=== PATIENT | male | born 1975 | race Caucasian/White ===

== ENCOUNTER 2017-05-21 02:12 | Emergency (ER) | payer MEDICAID ==
[~2017-05-21] VITALS: Ht 180.3 cm; Wt 71.8 kg
[2017-05-21] MEDS ORDERED: KETOROLAC 30 MG/1 ML ONE (02:49)
[2017-05-21] MEDS ORDERED: KETOROLAC 30 MG/1 ML IM ONE (03:00)
[2017-05-21 04:12] VITALS: BP 116/76
== END 2017-05-21 04:14 | disposition home or self-care (01) ==
LOC: ED 03:26
DX: M25.561 Pain in right knee (principal); F12.10 Cannabis abuse, uncomplicated; F17.210 Nicotine dependence, cigarettes, uncomplicated
CPT/HCPCS: 73564; 96372; 99284; J1885

== ENCOUNTER 2017-10-12 08:38 | Emergency (ER) | payer MEDICAID ==
[~2017-10-12] VITALS: Ht 180.3 cm; Wt 80.0 kg
[2017-10-12 09:23] LABS: RAPID INFLUENZA A Negative (Negative); RAPID INFLUENZA B POSITIVE (Negative)
[2017-10-12 09:39] VITALS: BP 113/69
[2017-10-12] MEDS ORDERED: HYDROcodone/APAP 5/325 TABLET PO ONE (10:00)
[2017-10-12] MEDS ORDERED: HYDROcodone/APAP 5/325 TABLET ONE (10:05)
== END 2017-10-12 10:26 | disposition home or self-care (01) ==
LOC: ED 08:57
DX: J10.1 Influenza due to other identified influenza virus with other respiratory manifestations (principal); J31.0 Chronic rhinitis
CPT/HCPCS: 71046; 87400; 99285

== ENCOUNTER 2017-11-21 12:58 | Emergency (ER) | payer MEDICAID ==
[~2017-11-21] VITALS: Ht 180.3 cm; Wt 83.8 kg
[2017-11-21 13:01] VITALS: BP 110/69
[2017-11-21] MEDS ORDERED: KETOROLAC 30 MG/1 ML IM ONE (14:30)
[2017-11-21] MEDS ORDERED: KETOROLAC 30 MG/1 ML ONE (14:30)
== END 2017-11-21 15:08 | disposition home or self-care (01) ==
LOC: ED 15:02
DX: S63.502A Unspecified sprain of left wrist, initial encounter (principal); X58.XXXA Exposure to other specified factors, initial encounter; Y93.89 Activity, other specified; Y99.8 Other external cause status; Y92.89 Other specified places as the place of occurrence of the external cause
CPT/HCPCS: 29260; 73110; 96372; 99284; J1885

== ENCOUNTER 2018-02-11 10:36 | Emergency (ER) | payer MEDICAID ==
[~2018-02-11] VITALS: Ht 180.3 cm; Wt 81.4 kg
[2018-02-11 10:37] VITALS: BP 113/75
[2018-02-11] MEDS ORDERED: KETOROLAC 30 MG/1 ML ONE (11:15)
[2018-02-11] MEDS ORDERED: KETOROLAC 30 MG/1 ML IM ONE (11:30)
== END 2018-02-11 12:07 | disposition home or self-care (01) ==
LOC: ED 12:01
DX: M77.9 Enthesopathy, unspecified (principal)
CPT/HCPCS: 29260; 73090; 96372; 99284; J1885

== ENCOUNTER 2018-06-10 10:58 | Emergency (ER) | payer MEDICAID ==
[~2018-06-10] VITALS: Ht 180.3 cm; Wt 82.0 kg
[2018-06-10] MEDS ORDERED: SODIUM CHLORIDE 0.9% 1,000 ML IV ONE (11:20)
[2018-06-10] MEDS ORDERED: ONDANSETRON ODT 4 MG PO ONE (11:30)
[2018-06-10] MEDS ORDERED: SODIUM CHLORIDE 0.9% 1,000ML IVBOLUS ONE (11:30)
[2018-06-10] MEDS ORDERED: SODIUM CHLORIDE FLUSH 10ML SYR IVF ONE (11:30)
[2018-06-10 11:56] LABS: BASOPHILS # (AUTO) 0.01 x10^3/uL (0-0.1); BASOPHILS % (AUTO) 0 % (0-1); EOSINOPHILS % (AUTO) 1 % (1-7); LYMPHOCYTES # (AUTO) 1.05 x10^3/uL (1-3.4); LYMPHOCYTES % (AUTO) 7 % (22-44); MD NO; MEAN CORPUSCULAR HEMOGLOBIN 30.8 pg (27.5-34.5); MEAN CORPUSCULAR HGB CONC 34.5 g/dL (33.2-36.2); MEAN CORPUSCULAR VOLUME 89.4 fL (81-97); MEAN PLATELET VOLUME 8.4 fL (7.4-10.4); MONOCYTES % (AUTO) 6 % (2-9); NEUTROPHILS # (AUTO) 12.56 x10^3/uL (1.8-6.8); NEUTROPHILS % (AUTO) 86 % (42-75); PLATELET COUNT 238 x10^3/uL (130-400); RED BLOOD COUNT 5.59 x10^6/uL (4.38-5.82); RED CELL DISTRIBUTION WIDTH 13.6 % (9.4-14.8)
[2018-06-10 12:07] LABS: ALANINE AMINOTRANSFERASE 77 U/L (12-78); ALBUMIN 4.4 g/dL (3.4-5.0); ANION GAP 11 mmol/L (5-15); CALCIUM 9.1 mg/dL (8.5-10.1); CHLORIDE 107 mmol/L (98-107)
[2018-06-10 12:09] LABS: ALKALINE PHOSPHATASE 95 U/L (45-117); BILIRUBIN,TOTAL 0.7 mg/dL (0.2-1.0); TOTAL PROTEIN 8.7 g/dL (6.4-8.2)
[2018-06-10] MEDS ORDERED: ONDANSETRON ODT 4 MG ONE (12:19)
[2018-06-10 13:39] LABS: MICROSCOPIC AUTO
[2018-06-10 13:48] LABS: CULTURE INDICATED? NO
[2018-06-10] MEDS ORDERED: OMNIPAQUE 350 MG/ML, 100ML BOTTLE ONE (15:12)
[2018-06-10 15:53] VITALS: BP 99/64
== END 2018-06-10 16:02 | disposition home or self-care (01) ==
LOC: ED 12:20
DX: K52.9 Noninfective gastroenteritis and colitis, unspecified (principal)
CPT/HCPCS: 36415; 74177; 80053; 81001; 83690; 85025; 96360; 99285; J7030; Q0162; Q9967

== ENCOUNTER 2018-10-09 10:20 | Emergency (ER) | payer MEDICAID, OTHER ==
[~2018-10-09] VITALS: Ht 180.3 cm; Wt 80.0 kg
[2018-10-09 10:36] VITALS: BP 102/68
[2018-10-09] MEDS ORDERED: KETOROLAC 30 MG/1 ML ONE (11:51)
--- NOTE | 2018-10-09 11:59 | NUR ---
Patient/Caregiver given discharge instructions and they have confirmed that they understand the instructions. Patient ambulatory with steady gait.
[2018-10-09] MEDS ORDERED: KETOROLAC 60 MG/2 ML IM ONE (12:00)
[2018-10-09] MEDS ORDERED: KETOROLAC 30 MG/1 ML IM ONE (12:00)
== END 2018-10-09 12:02 | disposition home or self-care (01) ==
LOC: ED 11:03
DX: S63.621A Sprain of interphalangeal joint of right thumb, initial encounter (principal); M13.141 Monoarthritis, not elsewhere classified, right hand; M10.9 Gout, unspecified; Z87.19 Personal history of other diseases of the digestive system; X58.XXXA Exposure to other specified factors, initial encounter; Y93.89 Activity, other specified; Y92.89 Other specified places as the place of occurrence of the external cause; Y99.8 Other external cause status
CPT/HCPCS: 73130; 96372; 99283; J1885

== ENCOUNTER 2019-02-12 10:16 | Emergency (ER) | payer MEDICAID ==
[~2019-02-12] VITALS: Ht 180.3 cm; Wt 80.0 kg
[2019-02-12 10:19] VITALS: BP 97/64
--- NOTE | 2019-02-12 10:50 | NUR ---
Patient/Caregiver given discharge instructions and they have confirmed that they understand the instructions. Patient ambulatory with steady gait.
== END 2019-02-12 10:55 | disposition home or self-care (01) ==
LOC: ED 10:41
DX: K02.9 Dental caries, unspecified (principal); F17.200 Nicotine dependence, unspecified, uncomplicated; M19.90 Unspecified osteoarthritis, unspecified site
CPT/HCPCS: 99283

== ENCOUNTER 2019-12-03 11:05 | Emergency (ER) | payer MEDICAID, OTHER ==
[~2019-12-03] VITALS: Ht 180.3 cm; Wt 76.1 kg
[2019-12-03 11:45] VITALS: BP 105/53
== END 2019-12-03 14:50 | disposition home or self-care (01) ==
LOC: ED 14:29
DX: B34.9 Viral infection, unspecified (principal); F17.200 Nicotine dependence, unspecified, uncomplicated; M19.90 Unspecified osteoarthritis, unspecified site
CPT/HCPCS: 71046; 99283

== ENCOUNTER 2020-08-26 01:51 | Emergency (ER) | payer SELFPAY ==
[~2020-08-26] VITALS: Ht 180.3 cm; Wt 67.0 kg
[2020-08-26] MEDS ORDERED: PROPARACAINE OPHTH 0.5%, 15ML ONE (01:58)
[2020-08-26] MEDS ORDERED: FLUORESCEIN OPHTHALMIC 1 MG STRIP ONE (01:58)
--- NOTE | 2020-08-26 02:18 | NUR ---
DR. BAEZA AT BEDSIDE FOR ASSESSMENT
[2020-08-26] MEDS ORDERED: DIPH,PERTUSS(ACELL),TET VAC/PF 0.5 ML IM-VACC ONE ×2 (02:30→03:49)
[2020-08-26 02:39] LABS: BASOPHILS % (AUTO) 1 % (0-1); EOSINOPHILS % (AUTO) 3 % (1-7); LYMPHOCYTES % (AUTO) 43 % (22-44); MEAN CORPUSCULAR HEMOGLOBIN 31.1 pg (27.5-34.5); MEAN CORPUSCULAR HGB CONC 34.6 g/dL (33.2-36.2); MEAN PLATELET VOLUME 7.2 fL (7.4-10.4); MONOCYTES % (AUTO) 8 % (2-9); NEUTROPHILS % (AUTO) 45 % (42-75); PLATELET COUNT 269 x10^3/uL (130-400); RED BLOOD COUNT 5.14 x10^6/uL (4.38-5.82)
[2020-08-26 02:50] LABS: ALBUMIN 3.9 g/dL (3.4-5.0); ANION GAP 5 mmol/L (5-15); CALCIUM 9.3 mg/dL (8.5-10.1); CHLORIDE 104 mmol/L (98-107)
[2020-08-26 02:56] LABS: MD NO
[2020-08-26] MEDS ORDERED: OMNIPAQUE 350 MG/ML, 75ML BOTTLE ONE (03:15)
--- NOTE | 2020-08-26 03:50 | NUR ---
REPORT RECIEVED FROM MIGUEL ANGEL KENNY
[2020-08-26 03:56] VITALS: BP 105/74
--- NOTE | 2020-08-26 05:09 | NUR ---
PT VERY ANXIOUS, DOES NOT WANT TO BE IN HOSPITAL. MD SPOKE WITH PATIENT MULTIPLE TIMES AND UPDATED HIM ON NEED FOR SURGERY OON HIS EYE ANDS TRANSFERING TO [facility]. PT WANTS TO LEAVE AND STATES HE WILL GO TO [facility] ER LATER THIS AFTERNOON. PT SIGNED AMA FORM AND UNDERSTANDS THAT THIS IS NOT RECOMMENDED IF HE WANTS TO SAVE HIS EYE OR NOT. PT UNDERSTANDS.
== END 2020-08-26 05:21 | disposition left against medical advice (07) ==
LOC: ED 04:11
DX: S05.32XA Ocular laceration without prolapse or loss of intraocular tissue, left eye, initial encounter (principal); H33.22 Serous retinal detachment, left eye; H27.10 Unspecified dislocation of lens; H57.89 Other specified disorders of eye and adnexa; F17.210 Nicotine dependence, cigarettes, uncomplicated; X58.XXXA Exposure to other specified factors, initial encounter; Y93.89 Activity, other specified; Y92.89 Other specified places as the place of occurrence of the external cause; Y99.8 Other external cause status
CPT/HCPCS: 36415; 70481; 80048; 82040; 85025; 90471; 90715; 99285; 99406; Q9967